=== PATIENT | female | born 1975 | race African-American/Black ===

== ENCOUNTER 2017-05-25 05:35 | Emergency (ER) | payer OTHER, BC ==
[~2017-05-25] VITALS: Ht 160 cm; Wt 95.4 kg
[2017-05-25] MEDS ORDERED: ULTRAM50 MG PO (08:10)
[2017-05-25 08:54] VITALS: BP 124/80
== END 2017-05-25 08:55 | disposition home or self-care (01) ==
LOC: EME 05:35
DX: M54.5 Low back pain (principal); Y92.410 Unspecified street and highway as the place of occurrence of the external cause; V79.40XA Driver of bus injured in collision with unspecified motor vehicles in traffic accident, initial encounter; J45.909 Unspecified asthma, uncomplicated
CPT/HCPCS: 72100; 99281; 99283